=== PATIENT | female | born 1950 | race Caucasian/White ===

== ENCOUNTER 2021-11-20 08:18 | Day surgery (SDC) | payer MEDICARE ==
[2021-11-15 15:24] LABS: BASOPHILS # (AUTO) 0.1 X10'3 (0-0.2); BASOPHILS % (AUTO) 1.2 % (0-1); EOSINOPHILS # (AUTO) 0.3 X10'3 (0-0.9); EOSINOPHILS % (AUTO) 4.9 % (0-6); LYMPHOCYTES # (AUTO) 1.1 X10'3 (1.1-4.8); LYMPHOCYTES % (AUTO) 16.7 % (21-51); MEAN CORPUSCULAR HEMOGLOBIN 29.3 PG (27.0-31.0); MEAN CORPUSCULAR HGB CONC 32.9 g/dL (33.0-36.5); MEAN CORPUSCULAR VOLUME 89.1 FL (78-98); MEAN PLATELET VOLUME 7.5 FL (7.4-10.4); MONOCYTES # (AUTO) 0.5 X10'3 (0-0.9); MONOCYTES % (AUTO) 7.1 % (2-12); NEUTROPHILS # (AUTO) 4.8 X10'3 (1.8-7.7); NEUTROPHILS % (AUTO) 70.1 % (42-75); PRE OP HEMATOCRIT 40.8 % (35.0-45.0); PRE OP HEMOGLOBIN 13.4 g/dL (12.0-16.0); PRE OP PLATELET COUNT 290 X10'3 (140-440); RED BLOOD COUNT 4.58 X10'6 (4.20-5.60); RED CELL DISTRIBUTION WIDTH 13.9 % (11.5-14.5)
[2021-11-15 15:32] LABS: PRE OP INR 1.1 INR; PRE OP PROTIME 10.9 SECONDS (9.0-12.0)
[2021-11-15 15:33] LABS: ALBUMIN 3.9 G/DL (3.4-5.0); ALBUMIN/GLOBULIN RATIO 1.1 (1.1-1.5); ALKALINE PHOSPHATASE 104 IU/L (46-116); BLOOD UREA NITROGEN 21 MG/DL (7-18); CALCIUM 9.8 MG/DL (8.5-10.1); CHLORIDE 104 MMOL/L (99-107); PRE OP ALT 28 U/L (30-65); PRE OP ANION GAP 9 (8-16); PRE OP AST 20 U/L (10-37); PRE OP BILIRUB, TOTAL 0.5 MG/DL (0.0-1.0); PRE OP GLUCOSE 92 MG/DL (70-104); PRE OP SODIUM 139 MMOL/L (135-145); TOTAL CARBON DIOXIDE 26.1 MMOL/L (24-32); TOTAL PROTEIN 7.6 G/DL (6.4-8.2); eGFR 82 ML/MIN
[2021-11-20] VITALS (21 sets, daily range): BP systolic 126–179; BP diastolic 72–106
[~2021-11-20] VITALS: Ht 167.6 cm; Wt 116.0 kg
[~2021-11-20 08:18] MED LIST: ACET-1025 PO; ALBU18HF2 INH; ATOR20TA66 PO; BUDE0.5A11 IH; DOCUMENT DATE & TIME OF BETA-BLOCKER PO ONE; ESOM20CA PO; GABA-530 PO; MAGN500C4 PO; METH-798 PO; METO25TA6 PO; MV-M1TAB69 PO; albuterol 2.5 MG/3 ML nebule NEB ONE; clindamycin-Cleocin 900mg/D5W 50 ML IV ONE; famotidine 20mg tablet PO ONE; ringers solution, lacted 1,000 ML IV SCH; vancomycin 1,500 MG in NS 300ml IV soln IV ONE
[2021-11-20] MEDS ORDERED: LIDOcaine 2% (20mg/ml) 5ml vial ONE (10:36)
[2021-11-20] MEDS ORDERED: fentaNYL/PF 50MCG/1 ML 2ML syringe ONE ×2 (10:36→13:03)
[2021-11-20] MEDS ORDERED: ondansetron/PF 4mg/2ml inj ONE (10:37)
[2021-11-20] MEDS ORDERED: dexamethasone sod phosphate 4mg/ml inj. ONE (10:37)
[2021-11-20] MEDS ORDERED: propofol inj 20 ML IV ONE (10:37)
[2021-11-20] MEDS ORDERED: sevoflurane 250ml liquid IH ONE (10:45)
[2021-11-20] MEDS ORDERED: BUPIVAcaine 0.5% inj/PF 30 ML ONE (10:45)
[2021-11-20] MEDS ORDERED: rocuronium 10mg/ml inj IV ONE (11:12)
[2021-11-20] MEDS ORDERED: ringers solution, lacted 1,000 ML IV SCH (11:45)
[2021-11-20] MEDS ORDERED: morphine 2 MG/ML inj. syringe IV PRN (11:45)
[2021-11-20] MEDS ORDERED: ondansetron/PF 4mg/2ml inj IV PRN (11:45)
[2021-11-20] MEDS ORDERED: enalaprilat dihydrate 2.5mg/2ml vial IV PRN (11:45)
[2021-11-20] MEDS ORDERED: hydrALAZINE 20mg/ml inj. IV PRN (11:45)
[2021-11-20] MEDS ORDERED: fentaNYL/PF 50MCG/1 ML 2ML syringe IV PRN ×2 (11:45)
[2021-11-20] MEDS ORDERED: vancomycin 1,000mg inj ONE (12:36)
--- NOTE | 2021-11-20 13:28 | NUR ---
Received from OR via shana , accompanied by Anesthesiologist Nash Beal and SUSTAINABILITY PROJECT COORDINATOR and report given by Anesthesiolgist. Pt awake to verbal stimuli, responding approprietely. Respiratory normal, denies pain. RON dressing clean dry and intact with green light flashing. Arm sling approprietely used. All extremities warm to touch. Addendum: 11/20/21 at 1418 by Juan Velasquez RN Amended: Links added. Addendum: 11/20/21 at 1418 by Juan Velasquez RN pt received to PACU at 13:28
[2021-11-20] MEDS: morphine 4 MG/ML inj SYRINge IV PRN ×2 (14:00→14:21)
[2021-11-20] MEDS ORDERED: oxyCODONE/APAP 10/325mg tablet PO ONE (14:40)
--- NOTE | 2021-11-20 17:08 | NUR ---
PT OUT OF PACU BY WHEELCHAIR WITH RN TO POV INTO CARE OF FRIEND, WITHOUT INCIDENT. PT HAS NO COMPLAINTS, AWARE OF AFTERCARE PLAN OF CARE, VERBAL AND WRITTEN INSTRUCTIONS GIVEN, PT VERBALIZED UNDERSTANDING. COPY OF DC INSTRUCTIONS PROVIDED TO PT. PT HAS STEADY, NARROW, INDEPENDENT GAIT. Addendum: 11/20/21 at 1758 by Juan Velasquez RN Amended: Links added.
== END 2021-11-20 17:08 | disposition home or self-care (01) ==
LOC: PAS 08:18
PROVIDERS: ATTEND Orthopaedic Surgery
DX: S46.011A Strain of muscle(s) and tendon(s) of the rotator cuff of right shoulder, initial encounter (principal); M75.21 Bicipital tendinitis, right shoulder; J43.9 Emphysema, unspecified; G47.30 Sleep apnea, unspecified; K21.9 Gastro-esophageal reflux disease without esophagitis; E66.01 Morbid (severe) obesity due to excess calories; Z68.41 Body mass index [BMI] 40.0-44.9, adult; Z20.822 Contact with and (suspected) exposure to COVID-19; Z79.899 Other long term (current) drug therapy; Z79.01 Long term (current) use of anticoagulants; Z87.891 Personal history of nicotine dependence; Z88.0 Allergy status to penicillin; Z88.8 Allergy status to other drugs, medicaments and biological substances; Z88.5 Allergy status to narcotic agent; Z98.890 Other specified postprocedural states; Z96.651 Presence of right artificial knee joint; X58.XXXA Exposure to other specified factors, initial encounter; Y92.89 Other specified places as the place of occurrence of the external cause; Y93.89 Activity, other specified; Y99.8 Other external cause status
CPT/HCPCS: 23130; 23412; 23430; 36415; 71046; 80053; 82948; 85025; 85610; 85730; 87635; 93005; A6223; C1713; C9803; J0360; J1100; J2270; J2405; J2704; J3010; J3370; J3490; J7030; J7040; J7120; S0020; Z7506; Z7508; Z7512; A4618; A6253; A6449; A7000; A9272

== ENCOUNTER 2025-05-25 09:00 | Day surgery (SDC) | payer MEDICARE ==
[2025-05-21 10:30] LABS: MEAN PLATELET VOLUME 7.6 FL (7.4-10.4); RED CELL DISTRIBUTION WIDTH 13.9 % (11.5-14.5)
[2025-05-21 10:44] LABS: APTT 49 SECONDS (22-32); INR 1.5 INR
[2025-05-21 10:51] LABS: CHOL/HDL RATIO 3.6 (0.00-4.99); CREATININE 0.64 MG/DL (0.40-0.90); LDL CHOLESTEROL 110 MG/DL (50-100); TOTAL CARBON DIOXIDE 31.3 MMOL/L (24-32); eGFR 90 ML/MIN
[~2025-05-25] VITALS: Ht 167.6 cm; Wt 109.6 kg
[~2025-05-25 09:00] MED LIST changes: -ACET-1025 PO; +ACET-2119 PO; +AMIO200T76 PO; -ATOR20TA66 PO; -BUDE0.5A11 IH; +BUDE10.7 INH; +DILT120T3 PO; -DOCUMENT DATE & TIME OF BETA-BLOCKER PO ONE; +GABA300T28 PO; -MAGN500C4 PO; -MV-M1TAB69 PO; +RIVA20TA PO; +TRAM50TA2 PO; -albuterol 2.5 MG/3 ML nebule NEB ONE; -clindamycin-Cleocin 900mg/D5W 50 ML IV ONE; -famotidine 20mg tablet PO ONE; -ringers solution, lacted 1,000 ML IV SCH; -vancomycin 1,500 MG in NS 300ml IV soln IV ONE
[2025-05-25] MEDS ORDERED: fentaNYL/PF 50MCG/1 ML 2ML syringe IV ONE (09:25)
[2025-05-25] MEDS ORDERED: normal saline 1000ml 1,000 ML IV SCH (09:25)
[2025-05-25] MEDS ORDERED: MIDAZolam 1mg/ml 10ml vial IV ONE (09:25)
[2025-05-25 09:46] VITALS: BP 149/67; PULSE 50; RESP 16; TEMP 98; O2SAT 97
[2025-05-25] MEDS ORDERED: amiodarone 50MG/ML inj IV ONE (11:39)
[2025-05-25] MEDS ORDERED: midazolam 1 mg/ML 2ml injection ONE ×3 (11:39→13:02)
[2025-05-25] MEDS ORDERED: fentaNYL/PF 50MCG/1 ML 2ML syringe ONE (11:39)
[2025-05-25] MEDS ORDERED: atropine 0.1mg/ml 10ml syringe ONE (11:40)
[2025-05-25 13:30] VITALS: BP 129/76; PULSE 66; RESP 17; O2SAT 94
--- NOTE | 2025-05-25 13:35 | ELECTROCARDIOGRAPH REPORT ---
[facility] Test Date: 2025-05-25 Test Time: 14:31:19 Pat Name: CHANEL EDDY Department: [id number] Room: Gender: F [employer]: : [id number] Requested By: MOHINDER STUBBS Order Number: [id number] Reading MD: Dr. Christal Stubbs Measurements Intervals [place] Rate: 65 P: 15 NE: 212 QRS: 48 QRSD: 97 T: 37 QT: 498 QTc: 518 Interpretive Statements Sinus rhythm Supraventricular bigeminy Borderline prolonged NE interval Electronically Signed On 05-26-2025 6:59:[address] Christal Stubbs Please click the below link to view image of tracing.
[2025-05-25 13:36] VITALS: RESP 16; O2SAT 97
[2025-05-25 13:45] VITALS: BP 137/75; PULSE 62; RESP 14; O2SAT 92
[2025-05-25 14:00] VITALS: BP 135/76; PULSE 63; RESP 15; O2SAT 96
[2025-05-25 14:10] VITALS: BP 163/77; PULSE 68; RESP 20; O2SAT 96
--- NOTE | 2025-06-13 10:04 | CARDIOLOGY REPORT ---
DATE OF SERVICE: 05/25/2025 DICTATING PHYSICIAN: Christal Stubbs MD CARDIOVERSION DATE OF STUDY: 05/25/2025 NAME OF STUDY: Electrical cardioversion. PROCEDURE: The patient was brought to cardiac short stay where she was prepped in the usual manner. After gradual increments of Versed and fentanyl, and conscious sedation was obtained, the patient was cardioverted. The patient remained clinically and hemodynamically stable throughout the procedure. IMPRESSION: Successful electrical cardioversion to normal sinus rhythm without complication. Christal Stubbs MD TID: [id number] RECEIPT: [id number] BRAD/ELFEGO
== END 2025-05-25 14:15 | disposition home or self-care (01) ==
LOC: SSTAY O 09:00
PROVIDERS: ATTEND Student in an Organized Health Care Education/Training Program
DX: I48.0 Paroxysmal atrial fibrillation (principal); I10 Essential (primary) hypertension; E78.00 Pure hypercholesterolemia, unspecified; J44.9 Chronic obstructive pulmonary disease, unspecified; G47.33 Obstructive sleep apnea (adult) (pediatric); Z79.82 Long term (current) use of aspirin; Z79.899 Other long term (current) drug therapy; Z88.0 Allergy status to penicillin; Z88.5 Allergy status to narcotic agent; Z88.8 Allergy status to other drugs, medicaments and biological substances
CPT/HCPCS: 36415; 80048; 80061; 85025; 85610; 85730; 92960; 93005; 99152; 99153; J2250; J3010; J7030; J0282; J0461